=== PATIENT | female | born 1935 | race Caucasian/White ===

== ENCOUNTER 2019-12-23 13:33 | Emergency (ER) | payer MEDICARE, SELFPAY ==
--- NOTE | 2019-12-23 14:01 | ERPHSYRPT ---
- History of Present Illness Time Seen by Provider: 12/23/19 13:50 Source: patient Exam Limitations: no limitations Patient Subjective Stated Complaint: Fall Triage Nursing Assessment: Patient brought back to ED via w/c and transferred to bed with assist of 1. Patient A+O X 3. Patient's skin pink, warm and dry. Patient complains of falling yesterday evening while missing a step falling on her right side. Patient complains of right upper extremity pain 6/10 with bruising noted. Patient also has swelling and bruising noted to Right lower extremity, but denies pain. Physician History: Patient is an 84-year-old female presents to our ED with pain to her right shoulder. Patient was at her home. There is a step down between the kitchen and living room. Patient misstepped and fell onto her right arm. No BHT or LO C. No headache. Patient describes ache at her right humerus midshaft area. The fall occurred yesterday. However patient states her pain is still the same today. Pain described as an ache that is well localized. No radiation. Pain worse with movement and palpation. Pain improved with rest. No other injury reported. She voices no other complaints at this time. During her physical exam it was noted that patient has bruising at all 4 extremities. However she only has pain at her right arm. No chest pain or shortness of breath. No nausea vomiting or diaphoresis. Patient states that she is on Coumadin. She was last checked her Coumadin approximately 1 to 2 weeks ago. We will obtain blood work today and check her INR. Occurred: yesterday Reason for Fall: tripped Injuries/Pain Location: upper extremity Loss of Consciousness: no loss of consciousness Quality: aching Severity of Pain-Max: moderate Severity of Pain-Current: mild (Patient declined pain medication.) Modifying Factors: Improves With: immobilization, movement Associated Symptoms (Fall): denies symptoms, other (Patient is ambulatory with a normal gait.), No chest pain, No dizziness, No headache, No lightheadedness, No muscle spasms, No nausea, No neck pain, No ringing in ears, No seizures, No shortness of breath, No slurred speech, No trouble walking, No vomiting Allergies/Adverse Reactions: amoxicillin [Amoxicillin] Allergy (Unknown, Verified 12/23/19 13:43) celecoxib [From Celebrex] Allergy (Unknown, Verified 12/23/19 13:43) cephalexin monohydrate [From Keflex] Allergy (Unknown, Verified 12/23/19 13:43) clopidogrel bisulfate [From Plavix] Allergy (Unknown, Verified 12/23/19 13:43) erythromycin base [Erythromycin Base] Allergy (Unknown, Verified 12/23/19 13:43) ezetimibe [From Vytorin 10-10] Allergy (Unknown, Verified 12/23/19 13:43) ibuprofen Allergy (Unknown, Verified 12/23/19 13:43) Rash Iodinated Contrast Media [IV Dye, Iodine Containing Contrast ] Allergy (Unknown, Verified 12/23/19 13:43) lansoprazole [From Prevacid] Allergy (Unknown, Verified 12/23/19 13:43) omeprazole [From Prilosec] Allergy (Unknown, Verified 12/23/19 13:43) omeprazole magnesium [From Prilosec] Allergy (Unknown, Verified 12/23/19 13:43) povidone-iodine [From Betadine] Allergy (Unknown, Verified 12/23/19 13:43) ranitidine HCl [From Zantac] Allergy (Unknown, Verified 12/23/19 13:43) rosuvastatin calcium [From Crestor] Allergy (Unknown, Verified 12/23/19 13:43) simvastatin [From Vytorin 10-10] Allergy (Unknown, Verified 12/23/19 13:43) soap [From Betadine] Allergy (Unknown, Verified 12/23/19 13:43) Sulfa (Sulfonamide Antibiotics) [Sulfa(Sulfonamide Antibiotics)] Allergy (Unknown, Verified 12/23/19 13:43) valsartan [From Diovan] Allergy (Unknown, Verified 12/23/19 13:43) carvedilol [From Coreg] Adverse Reaction (Severe, Verified 12/23/19 13:43) sacubitril [From Entresto] Adverse Reaction (Severe, Verified 12/23/19 13:43) Diarrhea Home Medications: Calcium Carbonate/Vitamin D3 [Calcium 600 with Vit D Tab] 1 each PO DAILY 09/08/11 [History] Potassium Chloride 10 Meq Tab* [Klor Con 10 MEQ] 10 meq PO BID 09/11/11 [History] Cholecalciferol (Vitamin D3) [Vitamin D] 1,000 unit PO DAILY 10/25/18 [History] Furosemide 20 mg [Lasix 20 mg] 10 mg PO BID 10/25/18 [History] Levothyroxine Sodium 100 Mcg [Synthroid 100 Mcg] 100 mcg PO DAILY 10/25/18 [History] Meclizine HCl 12.5 mg PO TIDPRN 10/25/18 [History] Multivitamin [Multivitamins] 1 each PO DAILY 10/25/18 [History] Nitroglycerin 0.4 mg Tablet [Nitrostat 0.4 MG Tablet] 0.4 mg SL UD 10/25/18 [History] Warfarin Sodium 5 mg [Coumadin 5 MG] 5 mg PO DAILY 10/25/18 [History] dilTIAZem HCL [Diltiazem ER] 240 mg PO DAILY 10/25/18 [History] Hx Influenza Vaccination/Date Given: No Hx Pneumococcal Vaccination/Date Given: No Immunizations Up to Date: Yes Travel Risk - International Travel Have you traveled outside of the country in past 3 weeks: No - Coronavirus Screening Are you exhibiting any of the following symptoms?: No Close contact with a COVID-19 positive Pt in past 14-21 Days: No - Review of Systems Constitutional: No Symptoms, No Fever, No Chills Eyes: No Symptoms Ears, Nose, & Throat: No Symptoms Respiratory: No Symptoms, No Cough, No Dyspnea Cardiac: Orthopnea, No Chest Pain, No Edema, No Syncope Abdominal/Gastrointestinal: No Symptoms, No Abdominal Pain, No Nausea, No Vomiting, No Diarrhea Genitourinary Symptoms: No Symptoms, No Dysuria Musculoskeletal: No Symptoms, No Back Pain, No Neck Pain Skin: No Symptoms, No Rash Neurological: No Symptoms, No Dizziness, No Focal Weakness, No Sensory Changes Psychological: No Symptoms Endocrine: No Symptoms Hematologic/Lymphatic: No Symptoms, Easy Bruising Immunological/Allergic: No Symptoms All Other Systems: Reviewed and Negative - Past Medical History Pertinent Past Medical History: Yes Neurological History: No Pertinent History ENT History: Cataracts Cardiac History: Arrhythmia, Coronary Artery Disease, High Cholesterol, Hype rtension, Myocardial Infarction ([place]) Respiratory History: Asthma, Pneumonia Endocrine Medical History: Hypothyroidism Musculoskeletal History: Osteoarthritis, Other GI Medical History: Gallbladder Disease History: No Pertinent History Psycho-Social History: No Pertinent History Female Reproductive Disorders: No Pertinent History Other Medical History: POLYMYALGIA - TAKES 10 MG PREDNISONE DAILY - PATIENT STATES PRETTY MUCH IN REMISSION. - Past Surgical History Past Surgical History: Yes Neuro Surgical History: No Pertinent History Cardiac: Cardiac Catheterization, Cardiac Stent, Internal Defibrillator, Pacemaker Respiratory: No Pertinent History Gastrointestinal: Cholecystectomy, Other Genitourinary: No Pertinent History Musculoskeletal: No Pertinent History Female Surgical History: Hysterectomy Other Surgical History: Nissonlapascopic on stomach 1995 - Social History Smoking Status: Former smoker Exposure to second hand smoke: No Drug Use: none Patient Lives Alone: No - Female History Hx Now: No - Nursing Vital Signs Nursing Vital Signs: Initial Vital Signs Temperature 97.6 F 12/23/19 13:44 Pulse Rate 73 12/23/19 13:44 Respiratory Rate 18 12/23/19 13:44 Blood Pressure 152/80 12/23/19 13:44 O2 Sat by Pulse Oximetry 97 12/23/19 13:44 Pain Scale Pain Intensity 2 - [place] Coma Score Best Eye Response (Heather): (4) open spontaneously Best Verbal Response (Heather): (5) oriented Best Motor Response (Heather): (6) obeys commands Heather Total: 15 - Physical Exam General Appearance: no apparent distress, alert Head Injury: no evidence of injury Eye Exam: PERRL/EOMI ENT Exam: airway nml Neck Exam: normal inspection, No tenderness Respiratory/Chest Exam: normal breath sounds, No chest tenderness, No respiratory distress Cardiovascular Exam: normal heart sounds, regular rate/rhythm Gastrointestinal Exam: soft, No tenderness, No distention, No guarding, No ecchymosis Back Exam: normal inspection, No vertebral tenderness Extremity Exam: normal inspection, normal range of motion, pelvis stable, other (Tenderness to palpation at right upper extremity humerus midshaft. Overlying soft tissue intact. No deformity. Extremities neurovascular intact distally. Compartments are soft. Cap refill less than 2 seconds. Patient is guarding her upper extremity movement worsens symptoms.), No deformities Neurologic Exam: alert, oriented x 3, cooperative, sensation nml, No motor deficits Skin Exam: normal color, warm, dry SpO2 Interpretation: normal SpO2: 97 O2 Delivery: Room Air Procedures - Joint Reduction Joint Reduction Site: Right, shoulder Conscious Sedation: Yes Reduction Attempts: 1 Pre-Procedure Neurovascular Exam: neurovascular intact Post Procedure Neurovascular Exam: neurovascular intact Post Joint Reduction Film: joint reduced Progress: No complications. Patient tolerated procedure well. Joint reduction occurred via traction countertraction external rotation technique. Patient tolerated procedure well. Neurovascular intact distally post procedure. - Procedural Sedation Indication: joint reduction Preparation: consent signed, iv access, constant attendance, sales promotion coordinator, oxygen, procedure explained, pulse oximeter Sedation Parenteral: Ketamine Response during procedure: moderate sedation, vital signs stable Post-Procedure Response: return to baseline mental status, vital signs stable - Course Nursing assessment & vital signs reviewed: Yes - Radiology Exams Humerus X-ray Interpretation: Teleradiologist Report (Anterior inferior humeral head dislocation and incidental right lung base calcified granuloma.), Other (Postreduction film of right humerus show successful reduction of previous humeral head dislocation.) Ordered Tests: Active Orders 24 hr Category Date Time Status [employer] Police 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 STAT Care 12/23/19 13:54 Active IV Insertion STAT Care 12/23/19 14:53 Active HUMERUS Stat Exams 12/23/19 13:52 Completed HUMERUS Stat Exams 12/23/19 15:23 Completed CBC W DIFF Stat Lab 12/23/19 14:00 Completed CMP Stat Lab 12/23/19 14:00 Completed PROTIME WITH INR Stat Lab 12/23/19 14:00 Completed PTT Stat Lab 12/23/19 14:00 Completed TROPONIN Q3H Lab 12/23/19 14:00 Completed TROPONIN Q3H Lab 12/23/19 17:00 Ordered TROPONIN Q3H Lab 12/23/19 20:00 Ordered TROPONIN Q3H Lab 12/23/19 23:00 Ordered TROPONIN Q3H Lab 12/24/19 02:00 Ordered Medication Summary Generic Name Dose Route Start Last Admin Trade Name Freq PRN Reason Stop Dose Admin Sodium Chloride 1,000 mls @ 100 mls/hr 12/23/19 15:15 12/23/19 15:08 Sodium Chloride 0.9% 1000 Ml IV 01/22/20 15:14 100 mls/hr .Q10H FRANCESCA Administration Discontinued Medications Generic Name Dose Route Start Last Admin Trade Name Freq PRN Reason Stop Dose Admin Ketamine HCl 50 mg 12/23/19 15:01 12/23/19 15:15 Ketamine Hcl 50 Mg/Ml IV 12/23/19 15:02 50 mg STAT ONE Administration Lab/Rad Data: Laboratory Result Diagrams 12/23/19 14:00 12/23/19 14:00 Laboratory Results 12/23/19 12/23/19 12/23/19 Range/Units 14:00 14:00 14:00 WBC (4.0-10.5) K/mm3 RBC (4.1-5.4) M/mm3 Hgb (12.0-16.0) gm/dl Hct (35-47) % MCV (78-100) fl MCH (26-32) pg MCHC (32-36) g/dl RDW (11.5-14.0) % Plt Count (150-450) K/mm3 MPV (7.5-11.0) fl Gran % (36.0-66.0) % Eos # (Auto) (0-0.5) Absolute Lymphs (auto) (1.0-4.6) Absolute Monos (auto) (0.0-1.3) Lymphocytes % (24.0-44.0) % Monocytes % (0.0-12.0) % Eosinophils % (0.00-5.0) % Basophils % (0.0-0.4) % Absolute Granulocytes (1.4-6.9) Basophils # (0-0.4) PT 48.1 H (9.95-12.35) SECONDS INR 4.20 H (0.8-3.0) APTT 37.8 H (25.3-37.0) SECONDS Sodium 136 L (137-145) mmol/L Potassium 5.0 (3.5-5.1) mmol/L Chloride 104 (98-107) mmol/L Carbon Dioxide 24 (22-30) mmol/L Anion Gap 13.2 (5-15) MEQ/L BUN 30 H (7-17) mg/dL Creatinine 1.54 H (0.52-1.04) mg/dL Estimated GFR 34.3 ML/MIN Glucose 219 H (74-106) mg/dL Calcium 9.6 (8.4-10.2) mg/dL Total Bilirubin 0.90 (0.2-1.3) mg/dL AST 42 H (14-36) U/L ALT 40 H (0-35) U/L Alkaline Phosphatase 68 (38-126) U/L Troponin I 0.013 (0.000-0.034) ng/mL Serum Total Protein 7.1 (6.3-8.2) g/dL Albumin 4.2 (3.5-5.0) g/dL 12/23/19 Range/Units 14:00 WBC 8.9 (4.0-10.5) K/mm3 RBC 4.15 (4.1-5.4) M/mm3 Hgb 13.1 (12.0-16.0) gm/dl Hct 41.1 (35-47) % MCV 99.0 (78-100) fl MCH 31.6 (26-32) pg MCHC 31.9 L (32-36) g/dl RDW 13.2 (11.5-14.0) % Plt Count 189 (150-450) K/mm3 MPV 10.0 (7.5-11.0) fl Gran % 90.6 H (36.0-66.0) % Eos # (Auto) 0.03 (0-0.5) Absolute Lymphs (auto) 0.54 L (1.0-4.6) Absolute Monos (auto) 0.25 (0.0-1.3) Lymphocytes % 6.1 L (24.0-44.0) % Monocytes % 2.8 (0.0-12.0) % Eosinophils % 0.3 (0.00-5.0) % Basophils % 0.2 (0.0-0.4) % Absolute Granulocytes 8.07 H (1.4-6.9) Basophils # 0.02 (0-0.4) PT (9.95-12.35) SECONDS INR (0.8-3.0) APTT (25.3-37.0) SECONDS Sodium (137-145) mmol/L Potassium (3.5-5.1) mmol/L Chloride (98-107) mmol/L Carbon Dioxide (22-30) mmol/L Anion Gap (5-15) MEQ/L BUN (7-17) mg/dL Creatinine (0.52-1.04) mg/dL Estimated GFR ML/MIN Glucose (74-106) mg/dL Calcium (8.4-10.2) mg/dL Total Bilirubin (0.2-1.3) mg/dL AST (14-36) U/L ALT (0-35) U/L Alkaline Phosphatase (38-126) U/L Troponin I (0.000-0.034) ng/mL Serum Total Protein (6.3-8.2) g/dL Albumin (3.5-5.0) g/dL - Progress Progress: improved Counseled pt/family regarding: lab results, diagnosis, need for follow-up, rad results - Departure Departure Disposition: Home Clinical Impression: Fall, Shoulder dislocation, Lung granuloma, Supratherapeutic INR, Elevated serum creatinine Condition: Stable Critical Care Time: No Referrals: ANJEL NIXON MD [Primary Care Provider] - ARVIN FIERRO [COURTESY STAFF] - Instructions: Shoulder Dislocation (DC) Additional Instructions: Your Coumadin levels are elevated. Please stop Coumadin until when you see Dr. Pool. He will reassess your INR and instruct you on either continuing to hold the Coumadin or restart the Coumadin. Discharge/Care Plan TAYLOR SAWANT was seen on 12/23/19 in the Emergency Room. The patient was counseled regarding Diagnosis,Lab results, Imaging studies, need for follow up and when to return to the Emergency Room. Prescriptions given: Discharge Note I have spoken with the patient and/or caregivers. I have explained the patient's condition, diagnosis and treatment plan based on the information available to me at this time. I have answered the patient's and/or caregiver's questions and addressed any concerns. The patient and/or caregivers have as good understanding of the patient's diagnosis, condition and treatment plan as can be expected at this point. The vital signs have been stable. The patient's condition is stable and appropriate for discharge from the emergency department. The patient will pursue further outpatient evaluation with the primary care physician or other designated or consulting physician as outlined in the dischar ge instructions. The patient and/or caregivers are agreeable to this plan of care and follow-up instructions have been explained in detail. The patient and/or caregivers have received these instruction. The patient/and or caregivers are aware that any significant change in condition or worsening of symptoms should prompt an immediate return to this or the closest emergency department or call 911. Outpatient Orders: Ortho Referral Time Frame: 1 Day, Facility: [facility], Location: ORTHO CLINIC
--- NOTE | 2019-12-23 14:13 | XRAY ---
Indication: Pain following fall. Comparison: None 2 view right humerus demonstrates anterior inferior humeral head dislocation and incidental right lung base calcified granuloma. No other bony, articular, or soft tissue abnormalities.
[2019-12-23 14:14] LABS: Absolute Neutrophil Ct (ANC) 8.07 (1.4-6.9); BASOPHIL % 0.2 % (0.0-0.4); Basophil (Absolute #) 0.02 (0-0.4); Eosinophil % 0.3 % (0.00-5.0); Eosinophil (Absolute #) 0.03 (0-0.5); Hematocrit 41.1 % (35-47); Hemoglobin 13.1 gm/dl (12.0-16.0); Lymphocyte (Absolute #) 0.54 (1.0-4.6); Lymphocytes % 6.1 % (24.0-44.0); Mean Corpuscular Hemoglobin 31.6 pg (26-32); Mean Corpuscular Hgb Concent. 31.9 g/dl (32-36); Monocyte (Absolute #) 0.25 (0.0-1.3); Monocytes % 2.8 % (0.0-12.0); Neutrophil % 90.6 % (36.0-66.0); Platelet Count 189 K/mm3 (150-450); Red Blood Count 4.15 M/mm3 (4.1-5.4); Red Cell Distribution Width 13.2 % (11.5-14.0); White Blood Count 8.9 K/mm3 (4.0-10.5)
[2019-12-23 14:25] LABS: INR 4.2 (0.8-3.0); PROTIME 48.1 SECONDS (9.95-12.35)
[2019-12-23 14:27] LABS: PTT 37.8 SECONDS (25.3-37.0)
[2019-12-23 14:32] LABS: ALBUMIN 4.2 g/dL (3.5-5.0); ANION GAP 13.2 MEQ/L (5-15); BILIRUBIN,TOTAL 0.9 mg/dL (0.2-1.3); Calcium 9.6 mg/dL (8.4-10.2); Creatinine 1 1.54 mg/dL (0.52-1.04); EST GLOMERULAR FILTRATION RATE 34.3 ML/MIN; Total Protein 7.1 g/dL (6.3-8.2)
[2019-12-23] MEDS ORDERED: Ketamine HCl 50 MG/ML IV ONE (15:01)
[2019-12-23] MEDS ORDERED: Sodium Chloride 0.9% 1000 ML 1,000 ML ONE (15:05)
[2019-12-23] MEDS ORDERED: Sodium Chloride 0.9% 1000 ML 1,000 ML IV SCH (15:15)
--- NOTE | 2019-12-23 16:39 | XRAY ---
Indication: Postreduction. Comparison: Taken earlier in the day. 2 view right humerus demonstrates successful reduction of previous humeral head dislocation. No other bony, articular, or soft tissue abnormalities.
[2019-12-23 16:47] VITALS: PULSE 72
[2019-12-23 17:28] VITALS: BP 126/79; O2SAT 96
== END 2019-12-23 17:28 | disposition home or self-care (01) ==
LOC: ED 13:33
DX: S43.004A Unspecified dislocation of right shoulder joint, initial encounter (principal); J84.10 Pulmonary fibrosis, unspecified; R79.1 Abnormal coagulation profile; R74.8 Abnormal levels of other serum enzymes; W01.0XXA Fall on same level from slipping, tripping and stumbling without subsequent striking against object, initial encounter; Y93.89 Activity, other specified; Y92.008 Other place in unspecified non-institutional (private) residence as the place of occurrence of the external cause; Z79.01 Long term (current) use of anticoagulants; Z79.899 Other long term (current) drug therapy; I25.10 Atherosclerotic heart disease of native coronary artery without angina pectoris; I10 Essential (primary) hypertension; I25.2 Old myocardial infarction; E03.9 Hypothyroidism, unspecified; Z95.810 Presence of automatic (implantable) cardiac defibrillator; M25.511 Pain in right shoulder; M35.3 Polymyalgia rheumatica
CPT/HCPCS: 23650; 36000; 36415; 73060; 80053; 84484; 85025; 85610; 85730; 93041; 96374; 99284

== ENCOUNTER 2020-04-12 00:44 | Emergency (ER) | payer MEDICARE ==
[2020-04-12] MEDS ORDERED: CARDIZEM DRIP 100 MG/100 ML D5W 100 ML IV ONE (01:12)
[2020-04-12] MEDS ORDERED: Cardizem IV 50 MG/10 ML IV ONE (01:13)
--- NOTE | 2020-04-12 01:13 | ERPHSYRPT ---
- History of Present Illness Time Seen by Provider: 04/12/20 01:00 Source: patient Exam Limitations: no limitations Physician History: The patient is an 85-year-old female with a past medical history significant for atrial fibrillation for which she is anticoagulated with Coumadin, hypertension, hypothyroidism, who presents with a chief complaint of shortness of breath. Onset reportedly was 2 to 3 days ago. She states her shortness of breath got worse this evening prompted her to seek treatment in the emergency department. Of note, the patient also complained of palpitations. She denied cough, fever, chills, chest pain, syncope, dizziness and reports been taking her Coumadin as prescribed. She is also on metoprolol to control her A. fib and reportedly has been taking this medication as prescribed. 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. Of note, the patient is a poor historian. Associated Symptoms: shortness of breath, No nausea, No vomiting, No abdominal pain, No chest pain, No fever, No headaches, No loss of appetite, No syncope, No weakness Allergies/Adverse Reactions: amoxicillin [Amoxicillin] Allergy (Unknown, Verified 04/12/20 01:12) celecoxib [From Celebrex] Allergy (Unknown, Verified 04/12/20 01:12) cephalexin monohydrate [From Keflex] Allergy (Unknown, Verified 04/12/20:12) clopidogrel bisulfate [From Plavix] Allergy (Unknown, Verified 04/12/20 01:12) erythromycin base [Erythromycin Base] Allergy (Unknown, Verified 04/12/20 01:12) ezetimibe [From Vytorin 10-10] Allergy (Unknown, Verified 04/12/20:12) ibuprofen Allergy (Unknown, Verified 04/12/20 01:12) Rash Iodinated Contrast Media [IV Dye, Iodine Containing Contrast ] Allergy (Unknown, Verified 04/12/20 01:12) lansoprazole [From Prevacid] Allergy (Unknown, Verified 04/12/20:12) omeprazole [From Prilosec] Allergy (Unknown, Verified 04/12/20:12) omeprazole magnesium [From Prilosec] Allergy (Unknown, Verified 04/12/20 01:12) povidone-iodine [From Betadine] Allergy (Unknown, Verified 04/12/20 01:12) ranitidine HCl [From Zantac] Allergy (Unknown, Verified 04/12/20 01:12) rosuvastatin calcium [From Crestor] Allergy (Unknown, Verified 04/12/20 01:12) simvastatin [From Vytorin 10-10] Allergy (Unknown, Verified 04/12/20 01:12) soap [From Betadine] Allergy (Unknown, Verified 04/12/20 01:12) Sulfa (Sulfonamide Antibiotics) [Sulfa(Sulfonamide Antibiotics)] Allergy (Unkn own, Verified 04/12/20 01:12) valsartan [From Diovan] Allergy (Unknown, Verified 04/12/20 01:12) carvedilol [From Coreg] Adverse Reaction (Severe, Verified 04/12/20 01:12) sacubitril [From Entresto] Adverse Reaction (Severe, Verified 04/12/20 01:12) Diarrhea Home Medications: Calcium Carbonate/Vitamin D3 [Calcium 600 with Vit D Tab] 1 each PO DAILY 09/08/11 [History] Potassium Chloride 10 Meq Tab* [Klor Con 10 MEQ] 10 meq PO BID 09/11/11 [History] Cholecalciferol (Vitamin D3) [Vitamin D] 1,000 unit PO DAILY 10/25/18 [History] Furosemide 20 mg [Lasix 20 mg] 10 mg PO BID 10/25/18 [History] Levothyroxine Sodium 100 Mcg [Synthroid 100 Mcg] 100 mcg PO DAILY 10/25/18 [History] Meclizine HCl 12.5 mg PO TIDPRN 10/25/18 [History] Multivitamin [Multivitamins] 1 each PO DAILY 10/25/18 [History] Nitroglycerin 0.4 mg Tablet [Nitrostat 0.4 MG Tablet] 0.4 mg SL UD 10/25/18 [History] Warfarin Sodium 5 mg [Coumadin 5 MG] 4 mg PO DAILY 10/25/18 [History] dilTIAZem HCL [Diltiazem ER] 240 mg PO DAILY 10/25/18 [History] Metoprolol Succinate 25 mg Xl* [Toprol-Xl 25MG Tablets] 25 mg PO DAILY 04/12/20 [History] Hx Influenza Vaccination/Date Given: No Hx Pneumococcal Vaccination/Date Given: No - Review of Systems Constitutional: No Fever, No Chills, No Fatigue Ears, Nose, & Throat: No Symptoms Respiratory: Dyspnea Cardiac: Palpitations, No Chest Pain Abdominal/Gastrointestinal: No Symptoms Genitourinary Symptoms: No Symptoms Musculoskeletal: No Symptoms Skin: No Symptoms Neurological: No Symptoms Psychological: No Symptoms Hematologic/Lymphatic: Easy Bruising All Other Systems: Reviewed and Negative - Past Medical History Pertinent Past Medical History: Yes Neurological History: No Pertinent History ENT History: Cataracts Cardiac History: Arrhythmia, Coronary Artery Disease, High Cholesterol, Hypertension, Myocardial Infarction ([place]) Respiratory History: Asthma, Pneumonia Endocrine Medical History: Hypothyroidism Musculoskeletal History: Osteoarthritis, Other GI Medical History: Gallbladder Disease History: No Pertinent History Psycho-Social History: No Pertinent History Female Reproductive Disorders: No Pertinent History Other Medical History: POLYMYALGIA - TAKES 10 MG PREDNISONE DAILY - PATIENT STATES PRETTY MUCH IN REMISSION. - Past Surgical History Past Surgical History: Yes Neuro Surgical History: No Pertinent History Cardiac: Cardiac Catheterization, Cardiac Stent, Internal Defibrillator, Pacemaker Respiratory: No Pertinent History Gastrointestinal: Cholecystectomy, Other Genitourinary: No Pertinent History Musculoskeletal: No Pertinent History Female Surgical History: Hysterectomy Other Surgical History: Nissonlapascopic on stomach 1995 - Social History Smoking Status: Former smoker Exposure to second hand smoke: No Drug Use: none Patient Lives Alone: No - Nursing Vital Signs Nursing Vital Signs: Initial Vital Signs Temperature 97.2 F 04/12/20 00:55 Pulse Rate 112 H 04/12/20 00:55 Respiratory Rate 22 04/12/20 00:55 Blood Pressure 114/95 04/12/20 00:55 O2 Sat by Pulse Oximetry 97 04/12/20 00:55 Pain Scale Pain Intensity 0 - Physical Exam General Appearance: no apparent distress, alert Eye Exam: No scleral icterus Neck Exam: non-tender, supple Respiratory Exam: crackles/rales (Inspiratory crackles auscultated on the left lower lobe when auscultating posteriorly), No chest tenderness, No respiratory distress Cardiovascular Exam: tachycardia, irregular, capillary refill <2 sec, other (A- fib with RVR noted on tele), No edema Gastrointestinal/Abdomen Exam: soft Pelvic Exam: not done Rectal Exam: deferred Back Exam: normal inspection Extremity Exam: other (Trace bilateral lower extremity edema) Neurologic Exam: alert, oriented x 3, cooperative Skin Exam: normal color, warm, dry, No rash, No petechiae SpO2 Interpretation: normal O2 Delivery: Room Air - Course Nursing assessment & vital signs reviewed: Yes EKG Interpreted by Me: A-fib, Other (Atrial fibrillation with RVR at a rate of 141 bpm. No evidence of demand ischemia.) - Radiology Exams Chest X-ray Interpretation: Interpreted by me, Reviewed by me (Cardiomegaly, pacemaker present, ? enlarged mediastinum. ) Ordered Tests: Active Orders 24 hr Category Date Time Status Outsole Caser STAT Care 04/12/20 00:59 Active EKG-ER Only STAT Care 04/12/20 00:58 Active IV Insertion STAT Care 04/12/20 00:58 Active CHEST 2 VIEWS (PA AND LAT) Stat Exams 04/12/20 00:59 Taken BMP Stat Lab 04/12/20 01:22 Completed CBC W DIFF Stat Lab 04/12/20 01:22 Completed D-DIMER QUANTITATIVE Stat Lab 04/12/20 01:22 Completed MAGNESIUM Stat Lab 04/12/20 01:22 Completed NT PRO BNP Stat Lab 04/12/20 01:22 Completed PHOSPHOROUS Stat Lab 04/12/20 01:22 Completed PROTIME WITH INR Stat Lab 04/12/20 01:22 Completed TROPONIN Q3H Lab 04/12/20 01:22 Completed TROPONIN Q3H Lab 04/12/20 04:00 Ordered TROPONIN Q3H Lab 04/12/20 07:00 Ordered TROPONIN Q3H Lab 04/12/20 10:00 Ordered TROPONIN Q3H Lab 04/12/20 13:00 Ordered TSH [TSH, 3RD Generation] Stat Lab 04/12/20 01:22 Completed Medication Summary Generic Name Dose Route Start Last Admin Trade Name Freq PRN Reason Stop Dose Admin Diltiazem HCl 100 mls @ 5 mls/hr 04/12/20 01:10 04/12/20 01:16 Cardizem Drip 100 Mg/100 Ml D5w IV 05/12/20 01:09 5 mg/hr .Q20H PRN 5 mls/hr HEART RATE/ A-FIB Administration Protocol 5 MG/HR Discontinued Medications Generic Name Dose Route Start Last Admin Trade Name Freq PRN Reason Stop Dose Admin Aspirin 324 mg 04/12/20 02:11 04/12/20 02:21 Baby Aspirin 81 Mg Chew PO 04/12/20 02:12 324 mg STAT ONE Administration Diltiazem HCl 10 mg 04/12/20 01:09 04/12/20 01:16 Cardizem Iv 50 Mg/10 Ml IV 04/12/20 01:10 10 mg STAT ONE Administration Diltiazem HCl Confirm 04/12/20 01:13 Cardizem Iv 50 Mg/10 Ml Administered 04/12/20 01:14 Dose 50 mg IV .STK-MED ONE Lab/Rad Data: Laboratory Result Diagrams 04/12/20 01:22 04/12/20 01:22 Laboratory Results 04/12/20 04/12/20 04/12/20 Range/Units 01:22 01:22 01:22 WBC (4.0-10.5) K/mm3 RBC (4.1-5.4) M/mm3 Hgb (12.0-16.0) gm/dl Hct (35-47) % MCV (78-100) fl MCH (26-32) pg MCHC (32-36) g/dl RDW (11.5-14.0) % Plt Count (150-450) K/mm3 MPV (7.5-11.0) fl Gran % (36.0-66.0) % Eos # (Auto) (0-0.5) Absolute Lymphs (auto) (1.0-4.6) Absolute Monos (auto) (0.0-1.3) Lymphocytes % (24.0-44.0) % Monocytes % (0.0-12.0) % Eosinophils % (0.00-5.0) % Basophils % (0.0-0.4) % Absolute Granulocytes (1.4-6.9) Basophils # (0-0.4) PT 26.7 H (9.95-12.35) SECONDS INR 2.34 (0.8-3.0) D-Dimer 4651 H* (215-500) ng/mL Sodium (137-145) mmol/L Potassium (3.5-5.1) mmol/L Chloride (98-107) mmol/L Carbon Dioxide (22-30) mmol/L Anion Gap (5-15) MEQ/L BUN (7-17) mg/dL Creatinine (0.52-1.04) mg/dL Estimated GFR ML/MIN Glucose (74-106) mg/dL Calcium (8.4-10.2) mg/dL Phosphorus (2.5-4.5) mg/dL Magnesium (1.6-2.3) mg/dL Troponin I 0.074 H* (0.000-0.034) ng/mL NT-Pro-B Natriuret Pep (0-1800) pg/mL TSH 3rd Generation 0.441 L (0.47-4.68) mIU/L 04/12/20 04/12/20 Range/Units 01:22 01:22 WBC 10.7 H (4.0-10.5) K/mm3 RBC 4.30 (4.1-5.4) M/mm3 Hgb 14.5 (12.0-16.0) gm/dl Hct 41.6 (35-47) % MCV 96.7 (78-100) fl MCH 33.7 H (26-32) pg MCHC 34.9 (32-36) g/dl RDW 14.0 (11.5-14.0) % Plt Count 190 (150-450) K/mm3 MPV 12.8 H (7.5-11.0) fl Gran % 81.8 H (36.0-66.0) % Eos # (Auto) 0.05 (0-0.5) Absolute Lymphs (auto) 1.05 (1.0-4.6) Absolute Monos (auto) 0.81 (0.0-1.3) Lymphocytes % 9.8 L (24.0-44.0) % Monocytes % 7.6 (0.0-12.0) % Eosinophils % 0.5 (0.00-5.0) % Basophils % 0.3 (0.0-0.4) % Absolute Granulocytes 8.77 H (1.4-6.9) Basophils # 0.03 (0-0.4) PT (9.95-12.35) SECONDS INR (0.8-3.0) D-Dimer (215-500) ng/mL Sodium 138 (137-145) mmol/L Potassium 4.0 (3.5-5.1) mmol/L Chloride 106 (98-107) mmol/L Carbon Dioxide 21 L (22-30) mmol/L Anion Gap 15.0 (5-15) MEQ/L BUN 59 H (7-17) mg/dL Creatinine 1.84 H (0.52-1.04) mg/dL Estimated GFR 27.8 ML/MIN Glucose 192 H (74-106) mg/dL Calcium 9.5 (8.4-10.2) mg/dL Phosphorus 4.1 (2.5-4.5) mg/dL Magnesium 2.6 H (1.6-2.3) mg/dL Troponin I (0.000-0.034) ng/mL NT-Pro-B Natriuret Pep 41304 H (0-1800) pg/mL TSH 3rd Generation (0.47-4.68) mIU/L - Progress Progress: improved Progress Note: 04/12/20 01:46 HR reassessed and found to be running between 80-104 after receiving a cardizem bolus and started on a cardizem gtt at 5 mg/hr. 04/12/20 02:13 The patient endorsed she was feeling less short of breath. Her HR in the 80- 120's at this point. Her troponin is mildly elevated and likely due to a type II event likely her atrial fibrillation with RVR. D-dimer elevated but she is therapeutic on warfarin with INR just above 2, so PE thought to be less likely. I was also unable to obtain a CTA of her chest due to her GFR being just above 20 and per radiology policy they will not allow me to perform a contrasted study unless it needs to be done emergently which I do not think she qualifies at this point. I informed her that she would need to be transfer to a facility with cardiology. She stated she actually goes to [facility]. The patient's nurse spoke to the son and stated the patient was a [facility] yesterday because her defibrillator went off. She reportedly was kept in the ED for 6 hrs and discharged with a prescription for metoprolol. He requested that the patient be transported to [facility] if able. The patient did not mention any of this and I'm concerned she may have some underlying dementia. 04/12/20 02:19 [facility] contracted and stated they would likely not have a bed available until this afternoon the earliest. [facility] is currently being contracted given they have cardiology and I was told by the nursing staff that [facility] rotates between [facility] and [facility].. 04/12/20 02:[address] Dudley, ED physician at [facility], and discussed the case with him. He agreed to accept the patient for transfer. The patient is currently stable. 04/12/20 02:35 04/12/20 02:36 Counseled pt/family regarding: lab results, diagnosis, rad results - Departure Departure Disposition: Transfer ([facility]) Clinical Impression: Atrial fibrillation with RVR, NSTEMI (non-ST elevated myocardial infarction), Dyspnea, CKD (chronic kidney disease) Condition: Stable Critical Care Time: Yes Critical Care Time(excluding separately billable procedures): Critical 30-74 mins
[2020-04-12] MEDS: Cardizem IV 50 MG/10 ML IV ONE (01:16)
[2020-04-12] MEDS: CARDIZEM DRIP 100 MG/100 ML D5W 100 ML IV PRN (01:16)
[2020-04-12 01:27] LABS: Absolute Neutrophil Ct (ANC) 8.77 (1.4-6.9); BASOPHIL % 0.3 % (0.0-0.4); Basophil (Absolute #) 0.03 (0-0.4); Eosinophil % 0.5 % (0.00-5.0); Eosinophil (Absolute #) 0.05 (0-0.5); Hematocrit 41.6 % (35-47); Hemoglobin 14.5 gm/dl (12.0-16.0); Lymphocyte (Absolute #) 1.05 (1.0-4.6); Lymphocytes % 9.8 % (24.0-44.0); Mean Cell Volume 96.7 fl (78-100); Mean Corpuscular Hemoglobin 33.7 pg (26-32); Mean Corpuscular Hgb Concent. 34.9 g/dl (32-36); Mean Platelet Volume 12.8 fl (7.5-11.0); Monocyte (Absolute #) 0.81 (0.0-1.3); Monocytes % 7.6 % (0.0-12.0); Neutrophil % 81.8 % (36.0-66.0); Platelet Count 190 K/mm3 (150-450); White Blood Count 10.7 K/mm3 (4.0-10.5)
[2020-04-12 01:32] LABS: INR 2.34 (0.8-3.0); PROTIME 26.7 SECONDS (9.95-12.35)
[2020-04-12 01:49] LABS: Calcium 9.5 mg/dL (8.4-10.2); Creatinine 1 1.84 mg/dL (0.52-1.04); EST GLOMERULAR FILTRATION RATE 27.8 ML/MIN; MAGNESIUM 2.6 mg/dL (1.6-2.3); PHOSPHOROUS 4.1 mg/dL (2.5-4.5)
[2020-04-12] MEDS: BABY ASPIRIN 81 MG CHEW PO ONE (02:21)
[2020-04-12 02:39] VITALS: BP 123/84; PULSE 104; O2SAT 96
--- NOTE | 2020-04-12 20:37 | XRAY ---
Exam: Two-view chest from 04/12/2020. Comparison: None. Indication: 85-year-old female with dyspnea. Findings: There is moderate cardiomegaly. Left-sided cardiac pacemaker/AICD is seen with one lead tip in the projection of the right atrium, another lead tip in the projection of the apex of the right ventricle, and a third smaller lead within the projection of the coronary sinus. Vascular calcification of the aortic arch and moderate tortuosity of the descending thoracic aorta are seen. The possibility of some aneurysmal distention of the descending thoracic aorta cannot be excluded. The remainder of the [place] and mediastinal structures appear unremarkable. There is slight accentuation of lung markings posteriorly at the lung bases. This is likely chronic and due to some minimal scarring. I believe there is a calcified granuloma at the posterior right lung base. No air space infiltrates, central vascular congestion, pneumothorax, or pleural fluid is seen. Mild biapical pleural thickening/scarring is seen. Bone demineralization and a mild S-shaped thoracic scoliosis are noted. There is a mild anterior wedge fracture deformity of the T11 vertebral body, age indeterminate. Correlate clinically. Some surgical clips are seen within the upper abdomen on the lateral radiograph, likely due to prior cholecystectomy. Impression: 1. Moderate cardiomegaly without evidence of acute heart failure or pulmonary edema. 2. Calcified, mildly tortuous descending thoracic aorta. Some aneurysmal distention within the descending thoracic aorta cannot be excluded by this study. 3. Left-sided cardiac pacemaker/AICD with leads in place, as discussed above. The leads appear intact. 4. Minimal chronic changes are seen at both posterior lung bases, likely due to mild scarring. No active lung infiltrates are seen. 5. Mild anterior wedge fracture deformity T11 vertebral body, age-indeterminate.
== END 2020-04-12 02:50 | disposition short-term general hospital (02) ==
LOC: ED 00:44
DX: I48.91 Unspecified atrial fibrillation (principal); I21.3 ST elevation (STEMI) myocardial infarction of unspecified site; R06.00 Dyspnea, unspecified; I12.9 Hypertensive chronic kidney disease with stage 1 through stage 4 chronic kidney disease, or unspecified chronic kidney disease; N18.9 Chronic kidney disease, unspecified; Z72.0 Tobacco use; E78.00 Pure hypercholesterolemia, unspecified; I25.10 Atherosclerotic heart disease of native coronary artery without angina pectoris; E03.9 Hypothyroidism, unspecified; Z79.01 Long term (current) use of anticoagulants; Z79.899 Other long term (current) drug therapy
CPT/HCPCS: 36000; 36415; 71046; 80048; 83735; 83880; 84100; 84443; 84484; 85025; 85379; 85610; 93005; 93041; 96365; 96374; 99285; 99291; A9270-GY